=== PATIENT | female | born 1980 | race Caucasian/White ===

== ENCOUNTER → 2016-10-09 | Outpatient (CLI) | payer OTHER | LOC: M LAB REF 11:46 | PROVIDERS: ATTEND Physician Assistant Medical | DX: A09 Infectious gastroenteritis and colitis, unspecified (principal) ==

== ENCOUNTER → 2016-12-09 | Outpatient (CLI) | payer OTHER ==
--- NOTE | 2016-12-09 15:12 | REPMRS ---
Patient History The patient states she had a clinical breast exam in 12/2016. Family history of prostate cancer in father at age 65, breast cancer in maternal grandmother at age 80, and breast cancer in paternal grandmother at age 68. Digital Woman Screen Mammo: December 09, 2016 - Exam #: [id number] Bilateral CC and MLO view(s) were taken. Technologist: Jenny Rodriguez, Technologist FINDINGS: The breast tissue is extremely dense which could obscure a lesion on mammography. There is diffuse dense residual fibroglandular tissue which is fairly symmetric. There is no dominant mass, architectural distortion, or clustered microcalcification typical of malignancy. Scattered lymph nodes are seen in the right axilla. ASSESSMENT: BI-RADS/ACR category 2 mammogram. Benign finding(s). Recommendation Routine screening mammogram (for women over age 40). Recommend her next screen at age 40 unless clinical circumstances dictate otherwise. This mammogram was interpreted with the aid of an FDA-approved computer-aided dectection system. A. Negative x-ray reports should not delay biopsy if a dominant or clinically suspicious mass is present. B. Four to eight percent of cancers are not identified by mammography. C. Adenosis and dense breast may obscure an underlying neoplasm. Electronically Signed By: Kush Damico MD 12/09/16 [id number]
== END ==
LOC: M WHC 13:00
PROVIDERS: ATTEND Physician Assistant Medical
DX: Z12.31 Encounter for screening mammogram for malignant neoplasm of breast (principal); Z80.3 Family history of malignant neoplasm of breast

== ENCOUNTER → 2016-12-09 | Outpatient (REF) | payer OTHER | LOC: M SFHCWAGY 13:42 | PROVIDERS: ATTEND Nurse Practitioner Women's Health | DX: Z12.4 Encounter for screening for malignant neoplasm of cervix (principal) ==

== ENCOUNTER 2017-05-22 17:47 | Emergency (ER) | payer OTHER ==
[2017-05-22] MEDS: KETOROLAC 30 MG/ML VIAL (J1885) IM (23:29)
[2017-05-22] MEDS: diazePAM 5 MG TAB PO (23:29)
== END 2017-05-23 00:09 | disposition home or self-care (01) ==
LOC: M ED 05-23 00:09
DX: S39.012A Strain of muscle, fascia and tendon of lower back, initial encounter (principal); X50.9XXA Other and unspecified overexertion or strenuous movements or postures, initial encounter; Y92.093 Driveway of other non-institutional residence as the place of occurrence of the external cause; F41.9 Anxiety disorder, unspecified; F33.9 Major depressive disorder, recurrent, unspecified; Z79.899 Other long term (current) drug therapy; Z91.048 Other nonmedicinal substance allergy status; Z98.890 Other specified postprocedural states
CPT/HCPCS: J1885

== ENCOUNTER → 2018-05-29 | Outpatient (CLI) | payer OTHER ==
[~2018-05-29] MED LIST: ISOVUE-370 76% 100ML VIAL (Q9967) As Ordered ONE; KETO10TAB PO; NICO21DI31 PO; SERT25TA88 PO; VALI5TAB PO; VENL75CA47 PO
--- NOTE | 2018-05-29 10:37 | REP ---
CT NECK WITH CONTRAST: HISTORY: Lymphadenopathy. CONTRAST: Isovue 370, 75 mL. The naso-, marcleina- and hypopharynx, larynx, and subglottic trachea are normal in appearance. The salivary and thyroid glands are normal in size and density. Small lymph nodes less than 1 cm in size are present in the internal jugular chains, posterior triangles, submandibular and submental areas. The lung apices are clear. Visualized sinuses are clear. IMPRESSION: There is no neck mass or adenopathy. Electronically Signed by Dennys Hooper MD 05/29/2018 10:39 A
== END ==
LOC: M RAD 10:00
PROVIDERS: ATTEND Physician Assistant Medical
DX: R59.0 Localized enlarged lymph nodes (principal)
CPT/HCPCS: 70491; Q9967

== ENCOUNTER → 2018-06-20 | Outpatient (CLI) | payer OTHER ==
[~2018-06-20] MED LIST changes: -ISOVUE-370 76% 100ML VIAL (Q9967) As Ordered ONE
--- NOTE | 2018-06-20 13:04 | REP ---
PA and lateral chest: Comparison is 06/24/2011. The lung goodrich are clear. The cardiac size is normal. The luiz, mediastinum, and skeletal structures are unremarkable. Impression: Negative PA and lateral chest. There is no interval change. No hilar or mediastinal enlargement. Electronically Signed by Donnell Roque MD 06/20/2018 12:56 P
--- NOTE | 2018-06-20 13:27 | REP ---
Thyroid ultrasound: The thyroid right lobe measures 4.2 x 1.4 x 1.9 cm. The thyroid left lobe measures 3.6 x 1.5 x 1.2 cm. The thyroid isthmus measures 1.2 mm. The thyroid is normal size. There is a 1.8 cm cyst in the right lobe lower pole. There are no other thyroid nodules, masses or cysts on the right on the left. No lymph nodes are identified by ultrasound. Impression: Negative thyroid ultrasound. No lymph nodes are identified by ultrasound. Electronically Signed by Donnell Roque MD 06/20/2018 01:19 P
== END ==
LOC: M RAD 11:58
PROVIDERS: ATTEND Physician Assistant Medical
DX: R59.0 Localized enlarged lymph nodes (principal)

== ENCOUNTER → 2018-09-28 | Outpatient (CLI) | payer OTHER ==
--- NOTE | 2018-09-28 14:29 | REP ---
Chest two views HISTORY: Bronchitis Comparison: 06/20/2018 The lungs are clear. The heart is normal in size. The pulmonary vasculature is normal in appearance. The bony structure is intact. IMPRESSION: No acute disease. Electronically Signed by Dennys Hooper MD 09/28/2018 02:22 P
== END ==
LOC: M SMT 14:08
PROVIDERS: ATTEND Physician Assistant Medical
DX: J40 Bronchitis, not specified as acute or chronic (principal)

== ENCOUNTER → 2019-10-11 | Outpatient (REF) | payer OTHER ==
[~2019-10-11] MED LIST changes: +SERT25TA21 PO; -SERT25TA88 PO
== END ==
LOC: M LAB REF 17:09
PROVIDERS: ATTEND Physician Assistant
DX: N39.0 Urinary tract infection, site not specified (principal)

== ENCOUNTER → 2020-07-02 | Outpatient (REF) | payer OTHER ==
[~2020-07-02] MED LIST changes: +NICO1DIS12 PO; -NICO21DI31 PO
== END ==
LOC: M LAB REF 15:52
PROVIDERS: ATTEND Physician Assistant
DX: R30.0 Dysuria (principal)

== ENCOUNTER → 2024-01-03 | Outpatient (CLI) | payer OTHER ==
[~2024-01-03] MED LIST changes: +E-Z-GAS II EFFERVESCENT PACKET (SODIUM BICARB./CITRIC ACID/SIMETHICONE) As Ordered ONE; +E-Z-HD 98% w/w 340GM SUSP BTL As Ordered ONE; +E-Z-PAQUE 96% w/w SUSP 176GM BTL As Ordered ONE
== END ==
LOC: M RAD 10:38
PROVIDERS: ATTEND Physician Assistant Medical
DX: K21.9 Gastro-esophageal reflux disease without esophagitis (principal)

== ENCOUNTER → 2024-01-20 | Outpatient (CLI) | payer MEDICAID, MEDICARE, OTHER ==
[~2024-01-20] MED LIST changes: -E-Z-GAS II EFFERVESCENT PACKET (SODIUM BICARB./CITRIC ACID/SIMETHICONE) As Ordered ONE; -E-Z-HD 98% w/w 340GM SUSP BTL As Ordered ONE; -E-Z-PAQUE 96% w/w SUSP 176GM BTL As Ordered ONE
[2024-01-20 13:13] LABS: BASO # 0.1 10^3/uL (0.0-0.2); BASO % 0.7 % (0.0-1.0); EOS # 0.4 10^3/uL (0.0-0.5); EOS % 4.7 % (0.0-3.0); HEMATOCRIT 39.6 % (36.0-47.0); HEMOGLOBIN 13.2 g/dl (12.0-15.5); LYMPH # 2.6 10^3/uL (1.5-5.0); LYMPH % 35.5 % (24.0-44.0); MEAN CORPUSCULAR HEMOGLOBIN 31.7 pg (27.0-33.0); MEAN CORPUSCULAR HGB CONC 33.3 g/dl (32.0-36.5); MEAN CORPUSCULAR VOLUME 95.2 fl (80.0-96.0); MONO # 0.6 10^3/uL (0.0-0.8); MONO % 7.5 % (2.0-8.0); NEUTROPHILS # 3.8 10^3/uL (1.5-8.5); NEUTROPHILS % 51.3 % (36.0-66.0); PLATELET COUNT, AUTOMATED 299 10^3/uL (150-450); RED BLOOD COUNT 4.16 10^6/uL (4.00-5.40); WHITE BLOOD COUNT 7.4 10^3/uL (4.0-10.0)
[2024-01-20 13:16] LABS: ALBUMIN 4.2 G/DL (3.2-5.2); ALKALINE PHOSPHATASE 54 U/L (46-116); ALT/SGPT 22 U/L (7.0-40); AST/SGOT 13 U/L (<34); BILIRUBIN,TOTAL 0.7 MG/DL (0.3-1.2); BLOOD UREA NITROGEN 11 MG/DL (9-23); CALCIUM LEVEL 9.4 MG/DL (8.5-10.1); CARBON DIOXIDE LEVEL 29 MMOL/L (20-31); CHLORIDE LEVEL 104 MMOL/L (98-107); CHOLESTEROL LEVEL 230 MG/DL (<200); CREATININE FOR GFR 0.69 MG/DL (0.55-1.30); GLOMERULAR FILTRATION RATE > 60.0 (>58); GLUCOSE, FASTING 89 MG/DL (60-100); HDL CHOLESTEROL 65.6 MG/DL (>40); LDL CHOLESTEROL 149.2 MG/DL (<100); NON-HDL-C 164.4 MG/DL; POTASSIUM SERUM 4.3 MMOL/L (3.5-5.1); SODIUM LEVEL 137 MMOL/L (136-145); TOTAL PROTEIN 7.3 G/DL (5.7-8.2); TRIGLYCERIDES LEVEL 76 MG/DL (<150)
[2024-01-20 13:18] LABS: FREE T4 0.88 NG/DL (0.89-1.76); THYROID STIMULATING HORMONE 1.335 uIU/ML (0.55-4.78)
== END ==
LOC: M PLALAB 09:59
PROVIDERS: ATTEND Physician Assistant Medical
DX: J30.2 Other seasonal allergic rhinitis (principal); F32.9 Major depressive disorder, single episode, unspecified; Z13.220 Encounter for screening for lipoid disorders; F41.9 Anxiety disorder, unspecified

== ENCOUNTER → 2024-05-17 | Outpatient (CLI) | payer OTHER ==
[2024-05-17 13:37] LABS: CHOLESTEROL RISK RATIO 3.52 (<5)
== END ==
LOC: M PLALAB 10:59
PROVIDERS: ATTEND Physician Assistant Medical
DX: Z13.220 Encounter for screening for lipoid disorders (principal)

== ENCOUNTER → 2024-05-18 | Outpatient (REF) | payer OTHER, MEDICAID | LOC: M LAB REF 12:17 | PROVIDERS: ATTEND Physician Assistant Medical | DX: R05.9 Cough, unspecified (principal) ==

== ENCOUNTER → 2024-06-04 | Outpatient (CLI) | payer OTHER | LOC: M PLALAB 11:44 | PROVIDERS: ATTEND Physician Assistant Medical | DX: K21.9 Gastro-esophageal reflux disease without esophagitis (principal) ==